=== PATIENT | female | born 1975 | race Caucasian/White ===

== ENCOUNTER 2021-05-14 21:35 | Inpatient (IN) | payer OTHER ==
[~2021-05-14] VITALS: Ht 152.4 cm; Wt 50.1 kg
--- NOTE | 2021-05-14 21:40 | PHYS DOC ---
General Adult HPI: HPI: ".. I think I got DKA.. my sugars are too high to read... " Patient is a 45 year old female who presents with history of elevated glucose levels. Paramedics were unable to get a reading because they were over 500. Unable to establish IV before arrival. Patient has a long history of diabetes. Has had previous episodes of DKA. Has past history of alcohol abuse but has been abstaining for a number of years now. Patient follows with Dr. Pinzon in [place]. Patient denies any recent travel. No specific ill contacts. No history immunosuppression. Review of Systems: Review of Systems: Constitutional: Denies fever or chills Eyes: Denies change in visual acuity HENT: Denies nasal congestion or sore throat Respiratory: Denies cough or shortness of breath Cardiovascular: Denies chest pain or edema GI: Complaints of abdominal pain, nausea, vomiting,. Denies bloody stools or diarrhea : Denies dysuria Musculoskeletal: Denies back pain or joint pain Integument: Denies rash Neurologic: Denies headache, focal weakness or sensory changes Endocrine: Denies polyuria or polydipsia Lymphatic: Denies swollen glands Psychiatric: Denies depression or anxiety Family History: Family History: Noncontributory to presentation Current Medications: Current Meds: See nursing for home meds Allergies: Allergies: No known drug allergies Physical Exam: PE: Constitutional: Moderate acute distress, non-toxic appearance. [] HENT: Normocephalic, atraumatic, bilateral external ears normal, oropharynx dry, no oral exudates, nose normal. [] Eyes: PERRLA, EOMI, conjunctiva normal, no discharge. [] Neck: Normal range of motion, no tenderness, supple, no stridor. [] Cardiovascular: Tachycardia heart rate regular rhythm, no murmur [] Lungs & Thorax: Bilateral breath sounds to apex on auscultation [] Abdomen: Bowel sounds normal, soft, mild right upper quadrant and epigastric tenderness, no masses, no pulsatile masses. Rebound to right upper quadrant and epigastric Skin: Warm, dry, no erythema, no rash. Poor turgor Back: No tenderness, no CVA tenderness. [] Extremities: No tenderness, no cyanosis, no clubbing, ROM intact, no edema. [] Neurologic: Alert and oriented X 3, moves extremities on request. Has distal sensory,, no focal deficits noted. [] Psychologic: Affect anxious judgement normal, mood normal. [] EKG: EKG: My interpretation EKG shows a supraventricular tachycardia 131 bpm. Mild RVH. No findings of acute STEMI. Abnormal EKG [] Radiology/Procedures: Radiology/Procedures: [] Heart Score: C/O Chest Pain: N/A Risk Factors: Risk Factors: DM, Current or recent (<one month) smoker, HTN, HLP, family history of CAD, obesity. Risk Scores: Score 0 - 3: 2.5% MACE over next 6 weeks - Discharge Home Score 4 - 6: 20.3% MACE over next 6 weeks - Admit for Clinical Observation Score 7 - 10: 72.7% MACE over next 6 weeks - Early Invasive Strategies Course & Med Decision Making: Course & Med Decision Making Pertinent Labs and Imaging studies reviewed. (See chart for details) Discussed presentation, testing and treatment plan with . Critical Care 60 min. Impression: 1. DKA- ph 7.030 2. Glucose 542 3. Leukocytosis 18.2 4. Hyponatremia- 129(suspect in part from elevated glucose) 5. Elevated BUN/ Crea 24/1.6 6. Elevated BNP 4,626 7. Macrocytic 107 [] Dragon Disclaimer: Dragon Disclaimer: This electronic medical record was generated, in whole or in part, using a voice recognition dictation system. Departure Departure: Referrals: CALOS COLEMAN MD (PCP) Danny Disclaimer This chart was dictated in whole or in part using Voice Recognition software in a busy, high-work load, and often noisy Emergency Department environment. It may contain unintended and wholly unrecognized errors or omissions. KAT LEVIN MD May 14, 2021 21:40
[2021-05-14] MEDS ORDERED: IV NORMAL SALINE 1,000ML 1,000 ML IV SCH (21:45)
[2021-05-14 22:14] LABS: BASO # 0.2 x10^3/uL (0.0-0.2); BASO % 1 % (0-3); EOS % 0 % (0-3); HEMATOCRIT 45.2 % (36.0-47.0); HEMOGLOBIN 14.4 g/dL (12.0-15.5); LYMPH # 0.7 x10^3/uL (1.0-4.8); LYMPH % 4 % (24-48); MEAN CORPUSCULAR HEMOGLOBIN 34 pg (25-35); MEAN CORPUSCULAR HGB CONC 32 g/dL (31-37); MEAN CORPUSCULAR VOLUME 107 fL (79-100); MONO % 6 % (0-9); NEUT # 16.3 x10^3uL (1.8-7.7); NEUT % 89 % (31-73); PLATELET COUNT 358 x10^3/uL (140-400); RED BLOOD COUNT 4.22 x10^6/uL (3.50-5.40); RED CELL DISTRIBUTION WIDTH 14.2 % (11.5-14.5); WHITE BLOOD COUNT 18.2 x10^3/uL (4.0-11.0)
--- NOTE | 2021-05-14 22:15 | RAD ---
XR CHEST 1V 05/14/2021 9:52 PM INDICATION: Tachycardia COMPARISON: None available TECHNIQUE: Portable frontal view of the chest is provided. FINDINGS: The cardiomediastinal silhouette is within normal limits. Lungs are clear. There are no significant pleural effusions. There is no pulmonary vascular congestion. No pneumothora x. Bilateral humeral hardware is noted. IMPRESSION: There is no acute cardiopulmonary process. Electronically signed by: aSmira Sanders MD (05/14/2021 10:12 PM) ANA
[2021-05-14] MEDS ORDERED: IV NORMAL SALINE 100ML 100 ML ONE (22:17)
[2021-05-14 22:18] LABS: % LYMPHS 7 % (24-48); % MONOS 3 % (0-10); % SEGS 90 % (35-66); ANISOCYTOSIS SLIGHT; PLT ESTIMATE ADEQUATE (ADEQUATE)
[2021-05-14] MEDS ORDERED: ACETAMINOPHEN 325 MG TABLET PO PRN (22:30)
[2021-05-14] MEDS ORDERED: INSULIN REGULAR VIAL 100 UNIT in IV NORMAL SALINE 100ML 100 ML IV ONE (22:30)
[2021-05-14] MEDS ORDERED: INSULIN REGULAR 100 UNIT/ML 3ML VIAL. IV ONE (22:30)
[2021-05-14] MEDS ORDERED: IV RINGERS SOLUTION,LACTATED 1,000 ML IV SCH (22:30)
[2021-05-14] MEDS ORDERED: ONDANSETRON PF 4 MG/2 ML VIAL. IVP PRN (22:30)
[2021-05-14 22:43] LABS: ALBUMIN 4.5 g/dL (3.4-5.0); ALK PHOS 184 U/L (46-116); ALT (SGPT) 52 U/L (14-59); AST (SGOT) 57 U/L (15-37); BLOOD UREA NITROGEN 24 mg/dL (7-20); CALCIUM 8.3 mg/dL (8.5-10.1); CHLORIDE 88 mmol/L (98-107); CREATININE 1.6 mg/dL (0.6-1.0); DIRECT BILIRUBIN 0.1 mg/dL (0.0-0.2); LIPASE 248 U/L (73-393); MAGNESIUM 2.5 mg/dL (1.8-2.4); SODIUM 129 mmol/L (136-145); TOTAL PROTEIN 8.6 g/dL (6.4-8.2)
[2021-05-14] MEDS ORDERED: IV NORMAL SALINE 50ML 50 ML ONE (22:43)
[2021-05-14] MEDS ORDERED: cefTRIAXone SODIUM 1 GM VIAL ONE (22:43)
[2021-05-14] MEDS ORDERED: ONDANSETRON PF 4 MG/2 ML VIAL. IVP ONE (23:00)
[2021-05-14 23:16] LABS: GLUCOSE 540 mg/dL (70-99)
[2021-05-14 23:17] LABS: POTASSIUM 7.3 mmol/L (3.5-5.1)
[2021-05-14 23:18] LABS: ANION GAP 36 (6-14); CARBON DIOXIDE < 5 mmol/L (21-32)
[2021-05-14] MEDS ORDERED: SODIUM BICARB ADULT 8.4% 50 MEQ/50 ML DISP.SYRIN. ONE (23:25)
[2021-05-14] MEDS ORDERED: FUROSEMIDE 40 MG/4 ML VIAL ONE (23:25)
[2021-05-14 23:30] VITALS: BP 154/114
--- NOTE | 2021-05-14 23:30 | NUR ---
Pt admitted to ICU bed 1 from ER via [facility] accompanied by EMS and nursing staff. Pt self transferred from [facility] to toilet/bathroom then to bed independently, steady gait noted. Pt here for c/o high blood glucose and N/V, found to be in DKA. Pt health history and home medications reviewed with pt. Pt recently removed her Dexcom glucose device and insulin pump r/t hypoglycemic episodes but was also recently started on Prednisone for skin irritation from bug bites. Pt with hx of heavy Etoh use but has been sober for 2 years now. Pt lives at home with father. SCDs for VTE. Pt has NOT had any Covid vaccine. Dietary consulted for DKA. Pt is a smoker, RT consulted fro smoking cessation. POC reviewed with pt, understanding verbalized. Pt was given written information regarding hospital policies, unit procedures and contact persons. Valuables were checked and left at bedside per pt request. Dr Cormier called for orders. Pt started on DKA order set and Insulin gtt per GlucoStabilizer. Next BMP check at 0200.
[2021-05-14] MEDS ORDERED: SODIUM BICARB ADULT 8.4% 50 MEQ/50 ML DISP.SYRIN. IV ONE (23:45)
[2021-05-15] VITALS (25 sets, daily range): BP systolic 94–142; BP diastolic 67–107
[2021-05-15] MEDS ORDERED: INSULIN REGULAR VIAL 100 UNIT in IV NORMAL SALINE 100ML 100 ML IV PRN
[2021-05-15] MEDS ORDERED: PROCHLORPERAZINE 10 MG/2 ML VIAL. IV PRN (00:15)
[2021-05-15] MEDS ORDERED: FUROSEMIDE 40 MG/4 ML VIAL IVP ONE ×2 (00:15→09:00)
[2021-05-15] MEDS: IV NORMAL SALINE 1,000ML 1,000 ML IV SCH ×2 (00:18→02:54)
[2021-05-15 01:00] LABS: CLARITY,URINE CLEAR; COLOR,URINE YELLOW; GLUCOSE,URINE 250 mg/dL (NEG)
[2021-05-15 01:01] LABS: BILIRUBIN,URINE SMALL (NEG); NITRITE,URINE NEG (NEG); UROBILINOGEN,URINE 0.2 mg/dL (0.2 mg/dL)
[2021-05-15 01:03] LABS: BACTERIA,URINE 0 /HPF (0-FEW); SQUAMOUS EPITHELIAL CELL,UR OCC /LPF; WBC,URINE 0 /HPF (0-4)
--- NOTE | 2021-05-15 01:14 | EKG ---
[address] [address] Test Date: 2021-05-14 Test Time: 21:51:34 Pat Name: BRI CHATMAN Department: Room: Gender: F Baker Paint: : [id number] Requested By: KAT LEVIN Order Number: [id number] Reading MD: Measurements Intervals Floral Rate: 131 P: 246 AL: 86 QRS: 67 QRSD: 96 T: 37 QT: 294 QTc: 439 Interpretive Statements SUPRAVENTRICULAR TACHYCARDIA RVH WITH REPOLARIZATION ABNORMALITY ABNORMAL ECG RI6.02 No previous ECG available for comparison
[2021-05-15] MEDS: IV DEXTROSE 5 %-0.45 % NACL 1,000 ML IV SCH ×4 (01:20→20:55)
[2021-05-15] MEDS ORDERED: GABA-586 PO (02:15)
[2021-05-15] MEDS ORDERED: TRIA15CR2 TP (02:15)
[2021-05-15] MEDS ORDERED: LEVO75TA5 PO (02:15)
[2021-05-15] MEDS ORDERED: TOPI25TA7 PO (02:15)
[2021-05-15] MEDS ORDERED: LISI20TA18 PO (02:15)
[2021-05-15] MEDS ORDERED: INSU100C SQ (02:15)
[2021-05-15] MEDS ORDERED: MUPI1OIN6 TP (02:15)
[2021-05-15] MEDS ORDERED: BENZ-8 PO (03:06)
[2021-05-15 03:11] LABS: CALCIUM 7.8 mg/dL (8.5-10.1); CREATININE 1.3 mg/dL (0.6-1.0); GFR 44.5; POTASSIUM 5.3 mmol/L (3.5-5.1)
--- NOTE | 2021-05-15 05:00 | NUR ---
The troponin level drawn at 0220 that was reported by lab to be elevated at 0.170 was entered incorrectly and is now corrected in computer. Troponin level was actually 0.017 on draw.
[2021-05-15 07:17] LABS: BASO % 0 % (0-3); EOS % 0 % (0-3); HEMATOCRIT 38.5 % (36.0-47.0); LYMPH # 0.9 x10^3/uL (1.0-4.8); LYMPH % 6 % (24-48); MEAN CORPUSCULAR HEMOGLOBIN 34 pg (25-35); MEAN CORPUSCULAR HGB CONC 34 g/dL (31-37); MEAN CORPUSCULAR VOLUME 100 fL (79-100); MONO # 0.8 x10^3/uL (0.0-1.1); MONO % 6 % (0-9); NEUT # 12.2 x10^3uL (1.8-7.7); NEUT % 87 % (31-73); PLATELET COUNT 219 x10^3/uL (140-400); RED BLOOD COUNT 3.85 x10^6/uL (3.50-5.40); RED CELL DISTRIBUTION WIDTH 13.4 % (11.5-14.5)
[2021-05-15 07:32] LABS: CALCIUM 8.1 mg/dL (8.5-10.1); CREATININE 1.3 mg/dL (0.6-1.0); GFR 44.5; POTASSIUM 3.8 mmol/L (3.5-5.1)
[2021-05-15] MEDS: IPRATRPIUM/ALBUTEROL 0.5/2.5MG 3 ML NEBU. NEB SCH ×2 (08:00→12:00)
--- NOTE | 2021-05-15 08:13 | PDOC2 ---
CARDIAC CONSULT DATE OF CONSULT DOS: DATE: 05/15/21 TIME: 08:11 REASON FOR CONSULT Reason for Consult elevated trop REFERRING PHYSICIAN Referring Physician Dr. Cormier SOURCE Source: Chart review, Patient HPI History of Present Illness This is a 45 yo female who presented secondary to nausea/vomiting, shortness of breath, and suspected DKA. Troponin level obtained and was noted to be elevated, which prompted this consult. Patient reports having cough, cold/congestion over the last several days. Is type I diabetes and normally wears continuous glucose monitor. She did not place recently as she was "cick". Was placed on steroids recently due to multiple bug bites. Has not checked her sugars in the last 5 days. Developed nausea/vomiting. Thought she was probably in DKA as symptoms were similar to previous episode of DKA. Has a history of heavy alcoholism; has been sober for 2 years. She denies any chest pain, palpitations, dizziness, or diaphoresis. SOA has resolved. Consult obtained due to trop on 0.029, which is still WNL. PAST MEDICAL HISTORY Cardiovascular: HTN Pulmonary: Pneumonia Renal/: Chronic renal insuff Endocrine: Diabetes, Hypothyroidism PAST SURGICAL HISTORY Past Surgical History: Total hip replacement (bilateral ), Other (right thoracotomy, bilateral shoulder replacement ) FAMILY HISTORY Family History: Hypertension SOCIAL HISTORY Smoke: <1 pack per day ALCOHOL: other (h/o heavy use. Sober 2 years ) Drugs: None Lives: with Family CURRENT MEDICATIONS Current Medications Current Medications Sodium Chloride 1,000 ml @ 1,000 mls/hr Q1H IV Last administered on 05/14/21at 22:00; Start 05/14/21 at 21:45; Stop 05/14/21 at 22:44; Status DC Insulin Human Regular (HumuLIN R VIAL) 10 unit 1X ONCE IV Last administered on 05/14/21at 22:21; Start 05/14/21 at 22:30; Stop 05/14/21 at 22:31; Status DC Insulin Human Regular 100 unit/ Sodium Chloride 101 ml @ 0 mls/hr 1X ONCE IV Last administered on 05/14/21at 22:23; Start 05/14/21 at 22:30; Stop 05/14/21 at 22:31; Status DC Sodium Chloride 100 ml @ As Directed STK-MED ONCE .ROUTE ; Start 05/14/21 at 22:17; Stop 05/14/21 at 22:17; Status DC Ceftriaxone Sodium 1 gm/ Sodium Chloride 50 ml @ 100 mls/hr 1X ONCE IV Last administered on 05/14/21at 22:46; Start 05/14/21 at 23:00; Stop 05/14/21 at 23:29; Status DC Ondansetron HCl (Zofran) 4 mg PRN Q4HRS PRN IVP NAUSEA/VOMITING; Start 05/14/21 at 22:30; Stop 05/15/21 at 07:30; Status DC Acetaminophen (Tylenol) 650 mg PRN Q4HRS PRN PO FEVER > 100.3'F; Start 05/14/21 at 22:30; Stop 05/15/21 at 22:29 Albuterol/ Ipratropium (Duoneb) 3 ml RTQID NEB ; Start 05/15/21 at 08:00; Stop 05/16/21 at 07:59 Lactated Ringer's 1,000 ml @ 200 mls/hr Q5H IV ; Start 05/14/21 at 22:30; Stop 05/15/21 at 00:12; Status DC Insulin Human Regular 100 unit/ Sodium Chloride 101 ml @ 0 mls/hr 1X ONCE IV ; Start 05/14/21 at 22:30; Stop 05/14/21 at 22:31; Status DC Ceftriaxone Sodium 1 gm/ Sodium Chloride 50 ml @ 100 mls/hr QHS IV ; Start 05/15/21 at 21:00 Ondansetron HCl (Zofran) 8 mg 1X ONCE IVP Last administered on 05/14/21at 22:46; Start 05/14/21 at 23:00; Stop 05/14/21 at 23:01; Status DC Sodium Chloride 50 ml @ As Directed STK-MED ONCE .ROUTE ; Start 05/14/21 at 22:43; Stop 05/14/21 at 22:43; Status DC Ceftriaxone Sodium (Rocephin) 1 gm STK-MED ONCE .ROUTE ; Start 05/14/21 at 22:43; Stop 05/14/21 at 22:43; Status DC Sodium Bicarbonate (Sodium Bicarb Adult 8.4% Syr) 50 meq 1X ONCE IV Last administered on 05/14/21at 23:27; Start 05/14/21 at 23:45; Stop 05/14/21 at 23:46; Status DC Furosemide (Lasix) 20 mg BID92 IVP ; Start 05/15/21 at 09:00 Furosemide (Lasix) 40 mg DAILY IVP Last administered on 05/14/21at 23:27; Start 05/15/21 at 09:00; Stop 05/15/21 at 00:07; Status DC Furosemide (Lasix) 40 mg STK-MED ONCE .ROUTE ; Start 05/14/21 at 23:25; Stop 05/14/21 at 23:25; Status DC Sodium Bicarbonate (Sodium Bicarb Adult 8.4% Syr) 50 meq STK-MED ONCE .ROUTE ; Start 05/14/21 at 23:25; Stop 05/14/21 at 23:25; Status DC Sodium Chloride 1,000 ml @ 160 mls/hr Q6H15M IV Last administered on 05/15/21at 00:18; Start 05/14/21 at 23:30; Stop 05/15/21 at 23:29 Dextrose/Sodium Chloride 1,000 ml @ 0 mls/hr Q0M IV Last administered on 05/15/21at 06:32; Start 05/15/21 at 00:00 Insulin Human Regular 100 unit/ Sodium Chloride 101 ml @ 0 mls/hr CONT PRN PRN IV PER PROTOCOL Last administered on 05/15/21at 00:20; Start 05/15/21 at 00:00 Furosemide (Lasix) 40 mg 1X ONCE IVP ; Start 05/15/21 at 09:00; Stop 05/15/21 at 09:01; Status Cancel Furosemide (Lasix) 40 mg 1X ONCE IVP ; Start 05/15/21 at 00:15; Stop 05/15/21 at 00:16; Status DC Fentanyl Citrate (Fentanyl 2ml Vial) 50 mcg PRN Q2HR PRN IVP PAIN Last administered on 05/15/21at 00:29; Start 05/15/21 at 00:15 Prochlorperazine Edisylate (Compazine) 10 mg PRN Q6HRS PRN IV NAUSEA/VOMITING Last administered on 05/15/21at 00:29; Start 05/15/21 at 00:15 Lactobacillus Rhamnosus (Culturelle) 1 cap BID PO ; Start 05/15/21 at 09:00 Active Scripts Active Reported Benzonatate 100 Mg Capsule 100 Mg PO PRN TID PRN LAST DOSE GIVEN: DATE: TIME: NEXT DOSE DUE: DATE: TIME: Topiramate 25 Mg Tablet 25 Mg PO DAILY LAST DOSE GIVEN: DATE: TIME: NEXT DOSE DUE: DATE: TIME: Humalog (Insulin Lispro) 100 Unit/1 Ml Cartridge 100 Unit SQ CONT PRN PRN Uses cartridge in Insulin Pump LAST DOSE GIVEN: DATE: TIME: NEXT DOSE DUE: DATE: TIME: Lisinopril 20 Mg Tablet 20 Mg PO DAILY LAST DOSE GIVEN: DATE: TIME: NEXT DOSE DUE: DATE: TIME: Levothyroxine Sodium 75 Mcg Tablet 75 Mcg PO DAILYAC LAST DOSE GIVEN: DATE: TIME: NEXT DOSE DUE: DATE: TIME: Triamcinolone Acetonide 0.025% Cream (Triamcinolone Acetonide) 15 Gm Cream..g. 1 Linda TP PRN BID PRN LAST DOSE GIVEN: DATE: TIME: NEXT DOSE DUE: DATE: TIME: Mupirocin 1 Gm Oin.pf.linda 1 Linda TP PRN BID PRN LAST DOSE GIVEN: DATE: TIME: NEXT DOSE DUE: DATE: TIME: Gabapentin (Gabapentin) 300 Mg Capsule 300 Mg PO DAILY LAST DOSE GIVEN: DATE: TIME: NEXT DOSE DUE: DATE: TIME: ALLERGIES Allergies: Coded Allergies: No Known Drug Allergies (Unverified , 05/14/21) ROS Review of Systems 14 point ROS conducted with pertinent positives noted above in HPI PHYSICAL EXAM General: Alert, Oriented X3, Cooperative, No acute distress HEENT: Atraumatic Lungs: Clear to auscultation Heart: Regular rate (SR/ST ) Abdomen: Soft Extremities: No edema Skin: No breakdown Neuro: Normal speech, Sensation intact Psych/Mental Status: Mental status NL, Mood NL MUSCULOSKELETAL: No deformity VITALS Vital Signs Vital Signs Date Time Temp Pulse Resp B/P (MAP) Pulse Ox O2 Delivery O2 Flow Rate FiO2 05/15/21 07:48 109 16 117/78 (91) 97 Room Air 05/15/21 05:40 99.5 LABS LABS Laboratory Tests Test 05/14/21 21:56 05/14/21 22:03 05/14/21 22:10 05/14/21 23:20 White Blood Count 18.2 x10^3/uL (4.0-11.0) Red Blood Count 4.22 x10^6/uL (3.50-5.40) Hemoglobin 14.4 g/dL (12.0-15.5) Hematocrit 45.2 % (36.0-47.0) Mean Corpuscular Volume 107 fL (79-100) Mean Corpuscular Hemoglobin 34 pg (25-35) Mean Corpuscular Hemoglobin Concent 32 g/dL (31-37) Red Cell Distribution Width 14.2 % (11.5-14.5) Platelet Count 358 x10^3/uL (140-400) Neutrophils (%) (Auto) 89 % (31-73) Lymphocytes (%) (Auto) 4 % (24-48) Monocytes (%) (Auto) 6 % (0-9) Eosinophils (%) (Auto) 0 % (0-3) Basophils (%) (Auto) 1 % (0-3) Neutrophils # (Auto) 16.3 x10^3uL (1.8-7.7) Lymphocytes # (Auto) 0.7 x10^3/uL (1.0-4.8) Monocytes # (Auto) 1.0 x10^3/uL (0.0-1.1) Eosinophils # (Auto) 0.0 x10^3/uL (0.0-0.7) Basophils # (Auto) 0.2 x10^3/uL (0.0-0.2) Segmented Neutrophils % 90 % (35-66) Lymphocytes % 7 % (24-48) Monocytes % 3 % (0-10) Platelet Estimate Adequate (ADEQUATE) Anisocytosis Slight Macrocytosis Slight Sodium Level 129 mmol/L (136-145) Potassium Level 7.3 mmol/L (3.5-5.1) Chloride Level 88 mmol/L (98-107) Carbon Dioxide Level < 5 mmol/L (21-32) Anion Gap 36 (6-14) Blood Urea Nitrogen 24 mg/dL (7-20) Creatinine 1.6 mg/dL (0.6-1.0) Estimated GFR (Cockcroft-Gault) 35.0 Glucose Level 540 mg/dL (70-99) Calcium Level 8.3 mg/dL (8.5-10.1) Magnesium Level 2.5 mg/dL (1.8-2.4) Total Bilirubin 1.0 mg/dL (0.2-1.0) Direct Bilirubin 0.1 mg/dL (0.0-0.2) Aspartate Amino Transf (AST/SGOT) 57 U/L (15-37) Alanine Aminotransferase (ALT/SGPT) 52 U/L (14-59) Alkaline Phosphatase 184 U/L (46-116) Creatine Kinase 128 U/L (26-192) Troponin I Quantitative < 0.017 ng/mL (0-0.055) GN-Tzt-O-Type Natriuretic Peptide 4626 pg/mL (0-124) Total Protein 8.6 g/dL (6.4-8.2) Albumin 4.5 g/dL (3.4-5.0) Lipase 248 U/L (73-393) Bedside Venous pH 7.03 (7.32-7.42) Bedside Venous pCO2 15 mmHg (41-51) Bedside Venous pO2 49 mmHg (20-40) Venous Blood HCO3 4 mmol/L (24-28) POC Venous O2 Saturation (Robert) 66 % Bedside FiO2 21 Glucose (Fingerstick) 542 mg/dL (70-99) 349 mg/dL (70-99) Test 05/14/21 23:48 05/15/21 00:01 05/15/21 01:17 05/15/21 02:20 Glucose (Fingerstick) 282 mg/dL (70-99) 230 mg/dL (70-99) 252 mg/dL (70-99) Urine Collection Type Unknown Urine Color Yellow Urine Clarity Clear Urine pH 5.5 Urine Specific Thomson 1.025 Urine Protein 100 mg/dl (NEG-TRACE) Urine Glucose (UA) 250 mg/dL (NEG) Urine Ketones (Stick) >=160 mg/dL (NEG) Urine Blood Mod (NEG) Urine Nitrite Neg (NEG) Urine Bilirubin Small (NEG) Urine Urobilinogen Dipstick 0.2 mg/dL (0.2 mg/dL) Urine Leukocyte Esterase Neg (NEG) Urine RBC 3-5 /HPF (0-2) Urine WBC 0 /HPF (0-4) Urine Squamous Epithelial Cells Occ /LPF Urine Bacteria 0 /HPF (0-FEW) Urine Mucus Mod /LPF Sodium Level 134 mmol/L (136-145) Potassium Level 5.3 mmol/L (3.5-5.1) Chloride Level 95 mmol/L (98-107) Carbon Dioxide Level 11 mmol/L (21-32) Anion Gap 28 (6-14) Blood Urea Nitrogen 23 mg/dL (7-20) Creatinine 1.3 mg/dL (0.6-1.0) Estimated GFR (Cockcroft-Gault) 44.5 Glucose Level 238 mg/dL (70-99) Calcium Level 7.8 mg/dL (8.5-10.1) Troponin I Quantitative < 0.017 ng/mL (0-0.055) Test 05/15/21 03:23 05/15/21 04:26 05/15/21 05:29 05/15/21 06:15 Glucose (Fingerstick) 231 mg/dL (70-99) 207 mg/dL (70-99) 156 mg/dL (70-99) White Blood Count 14.0 x10^3/uL (4.0-11.0) Red Blood Count 3.85 x10^6/uL (3.50-5.40) Hemoglobin 13.0 g/dL (12.0-15.5) Hematocrit 38.5 % (36.0-47.0) Mean Corpuscular Volume 100 fL (79-100) Mean Corpuscular Hemoglobin 34 pg (25-35) Mean Corpuscular Hemoglobin Concent 34 g/dL (31-37) Red Cell Distribution Width 13.4 % (11.5-14.5) Platelet Count 219 x10^3/uL (140-400) Neutrophils (%) (Auto) 87 % (31-73) Lymphocytes (%) (Auto) 6 % (24-48) Monocytes (%) (Auto) 6 % (0-9) Eosinophils (%) (Auto) 0 % (0-3) Basophils (%) (Auto) 0 % (0-3) Neutrophils # (Auto) 12.2 x10^3uL (1.8-7.7) Lymphocytes # (Auto) 0.9 x10^3/uL (1.0-4.8) Monocytes # (Auto) 0.8 x10^3/uL (0.0-1.1) Eosinophils # (Auto) 0.0 x10^3/uL (0.0-0.7) Basophils # (Auto) 0.0 x10^3/uL (0.0-0.2) Sodium Level 136 mmol/L (136-145) Potassium Level 3.8 mmol/L (3.5-5.1) Chloride Level 99 mmol/L (98-107) Carbon Dioxide Level 17 mmol/L (21-32) Anion Gap 20 (6-14) Blood Urea Nitrogen 19 mg/dL (7-20) Creatinine 1.3 mg/dL (0.6-1.0) Estimated GFR (Cockcroft-Gault) 44.5 Glucose Level 137 mg/dL (70-99) Calcium Level 8.1 mg/dL (8.5-10.1) Troponin I Quantitative 0.029 ng/mL (0-0.055) Test 05/15/21 06:29 05/15/21 07:30 Glucose (Fingerstick) 153 mg/dL (70-99) 139 mg/dL (70-99) ASSESSMENT/PLAN Assessment/Plan 1. Nausea/vomiting, DKA 2. Diabetes, II 3. PAKO, hyperkalemia 4. Mild troponin elevation; highest 0.029, although remains WNL. Demand mediated in setting of above 5. Sinus tachycardia; reactive to above 6. Hypertension; controlled 7. Hypothyroidism 8. Tobaccoism; discussed/encourage cessation Recommendations Supportive care from a CV standpoint Ongoing treatment of DKA as per IM No further cardiac workup warranted at this time Thank you for this consultation MARIBELL JOINER APRN May 15, 2021 08:12
[2021-05-15] MEDS ORDERED: POTASSIUM CL 20MEQ D5-0.45NACL 1,000 ML IV SCH (08:30)
[2021-05-15] MEDS ORDERED: POTASSIUM CL 20MEQ IN D5W 1,000 ML IV SCH (08:45)
[2021-05-15] MEDS: LACTOBACILLUS RHAMNOSUS GG 1 CAPSULE. PO SCH ×2 (08:48→20:55)
[2021-05-15] MEDS: FUROSEMIDE 20 MG/2 ML VIAL IVP SCH ×2 (08:49→15:26)
[2021-05-15] MEDS ORDERED: FUROSEMIDE 40 MG/4 ML VIAL IVP SCH (09:00)
--- NOTE | 2021-05-15 10:33 | NUR ---
Patient is alert and oriented x3. Having complaints about IVs. LEJ burning when pushing meds through, is some puffiness around site although doesn't balloon up when flushing. New IV placed in right hand. Switched patients fluids to D5 with potassium. Pt complaining of burning, reduced rate and patient still unable to tolerate. Threatening to rip her IV out. Checking BMP, pt switched to D5 1/2 NS. Will view lab values and notify doctor. WCTM.
[2021-05-15 11:22] LABS: CALCIUM 8.5 mg/dL (8.5-10.1); CREATININE 1.2 mg/dL (0.6-1.0); GFR 48.8; POTASSIUM 3.6 mmol/L (3.5-5.1)
[2021-05-15] MEDS ORDERED: POTASSIUM CHLORIDE 20 MEQ TABLET.ER. PO ONE (12:15)
--- NOTE | 2021-05-15 12:16 | NUR ---
IVF switched back to D5 1/2 NS due to patient unable to tolerate potassium through IV. Giving potassium orally.
[2021-05-15 14:30] LABS: CALCIUM 8.2 mg/dL (8.5-10.1); CREATININE 1.2 mg/dL (0.6-1.0); GFR 48.8; POTASSIUM 3.1 mmol/L (3.5-5.1)
[2021-05-15] MEDS ORDERED: DEXTROSE 50% 25 GM / 50ML DISP.SYRIN. IV PRN (15:30)
[2021-05-15] MEDS ORDERED: MUPIROCIN 2% TOPICAL OINTMENT 22GM TUBE. TP PRN (16:30)
[2021-05-15] MEDS ORDERED: TRIAMCINOLONE ACETONIDE 0.1% TOPICAL CREAM 15GM TUBE. TP PRN (16:30)
[2021-05-15] MEDS: GABAPENTIN 300 MG CAPSULE. PO SCH (16:49)
[2021-05-15] MEDS: TOPIRAMATE 25 MG TABLET. PO SCH (16:50)
[2021-05-15] MEDS: INSULIN LISPRO 300 UNITS/3 ML VIAL. SQ SCH (17:32)
--- NOTE | 2021-05-15 18:32 | HP ---
ADMIT DATE: 05/15/2021 HISTORY OF PRESENT ILLNESS: The patient is a 45-year-old female patient who presented to the Emergency Room of [facility] with markedly elevated glucose level. Paramedics were unable to get the read as the machine reads over 500 and unable to establish an IV before arrival. The patient has a long history of diabetes since 2014, has had multiple episodes of DKA. She also has a long history of alcohol abuse, has been abstaining from drinking alcohol for the last 2 years. She follows with Dr. Pinzon at [place]. Denied any recent travel. No specific ill contact. No history of immunosuppression. She was evaluated. She also complained that she was on some steroids for pruritic skin rash and also had chest congestion. She was evaluated in the Emergency Room and her lab work showed a white cell count of 18,200. Her blood gases showed a pH of 7.03, a pCO2 of 15, pO2 of 49, bicarbonate of 4, and her initial chemistry showed her blood sugar of 540. Sodium 129, potassium 7.3, chloride 88, bicarbonate less than 5, anion gap of 36, BUN 24, creatinine 1.6. Estimated GFR was 35 mL per minute. Her calcium was 8.3, magnesium was 2.5. She was basically admitted with diabetic ketoacidosis. Her chest x-ray was basically unremarkable, and her urinalysis was also unremarkable. She was admitted to the ICU, started on IV fluid and insulin drip as per DKA protocol. 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 Has had pneumonia in 2013 that required a right-sided chest tube placement, hypothyroidism, alcoholism and alcohol-induced pancreatitis. PAST SURGICAL HISTORY: Significant for bilateral hip and bilateral shoulder replacement for avascular necrosis. She also has her right sternocleidomastoid muscle removed during her childhood. ALLERGIES: She has no known drug allergies. MEDICATIONS: She is currently on the following medications: She is on lisinopril 20 mg once a day, gabapentin 300 mg once a day, topiramate 25 mg daily, benzonatate 100 mg 3 times a day. She is on Humalog insulin as the insulin sliding scale before meals. She is on levothyroxine 75 mcg once a day, Bactroban ointment apply topically twice a day and she is on triamcinolone acetonide 0.025% cream apply topically twice a day. FAMILY HISTORY: She is the only child, has no brothers and sisters. Her parents are since she was 6 years old. Her father is alive at the age of 70 and he has cancer. Mother is alive at the age of 65 and apparently healthy. SOCIAL HISTORY: She is single, has no children. She smokes 6-8 cigarettes a day, does not drink alcohol, has been sober for the last 2 years. She does not use any drugs. 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 REVIEW OF SYSTEMS: As per history of present illness. PHYSICAL EXAMINATION: GENERAL: On arrival to the Emergency Room, she was tachypneic, tachycardic. VITAL SIGNS: Her heart rate was 137. Her blood pressure is 140/100, temperature was 97.8, respiratory rate was 50 and oxygen saturation was 98% on room air. HEAD, EYES, EARS, NOSE, AND THROAT: Normocephalic, atraumatic. NECK: Supple. HEART: Showed normal first and second heart sounds. No gallop, rub or murmur. CHEST: Clear to auscultation, no crepitation or rhonchi. ABDOMEN: Distended, soft, nontender. NEUROLOGIC: She is awake, alert, responding appropriately. Cranial nerves intact. She moves extremities without difficulty. LABORATORY DATA: Her lab work on arrival showed a white cell count of 18,200, hemoglobin 14.4, hematocrit 45, MCV 107, and a platelet count of 358,000 with a manual differential showed 89% polymorphs, 4% lymphocytes and 6% . Her chemistry showed a serum sodium 129, potassium 7.3, chloride 88, bicarbonate 5, anion gap of 36, BUN is 24, creatinine 1.6. Estimated GFR was 35 mL per minute. Her blood sugar was 540 mg/dL, calcium was 8.3, magnesium 2.5. Total bilirubin, AST, ALT, alkaline phosphatase slightly elevated. CK was 128. Beta-natriuretic peptide was 4626. Total protein 8.6, albumin was 4.5 and lipase was 248. Her urinalysis showed the urine was yellow, clear with a pH of 5.5, specific gravity of 1.025. There is large amount of protein, large amount of glucose, large amount of ketones, moderate amount of blood, negative for nitrite, negative for leukocyte esterase. There are 3-5 rbc's, no wbc's and no bacteria. Her chest x-ray showed the cardiomediastinal silhouette is within normal limits. Lungs are clear. There are no significant pleural effusion. There is no pulmonary vascular congestion, no pneumothorax, bilateral humeral hardware is noted. ASSESSMENT AND PLAN: The patient was started on IV fluid and insulin drip as per insulin sliding scale. We will monitor her labs as per the diabetic ketoacidosis protocol and replenish her potassium once needed, and once her blood sugar and anion gap is closed, we will switch her back to her usual home medications. We will also reconcile all her medications. PILY/RON/CASIMIRO DR: Laurel TID: [id number]
[2021-05-15] MEDS: BENZONATATE 100 MG CAPSULE. PO PRN (20:55)
[2021-05-15] MEDS ORDERED: INSULIN GLARGINE SYRINGE. SQ SCH (21:00)
[2021-05-16] VITALS (8 sets, daily range): BP systolic 96–113; BP diastolic 74–85
--- NOTE | 2021-05-16 02:07 | PN ---
DATE: 05/15/2021 SUBJECTIVE: The patient is resting slightly propped up in bed, in no apparent distress. She is awake, alert and feeling generally much better, although she can still continue to have some congestion and cough that seemed to be moist. PHYSICAL EXAMINATION: GENERAL: When I examined her, she looked well and clearly there is no pallor, jaundice, cyanosis or thyromegaly. No jugular venous distention. No lower limb edema. VITAL SIGNS: Her heart rate was 91, blood pressure is 106/78, temperature was 99.2, respiratory rate was 14 and oxygen saturation was 98% on room air. HEAD, EYES, EARS, NOSE, AND THROAT: Normocephalic, atraumatic. NECK: Supple. HEART: Showed normal first and second heart sounds. No gallop, rub or murmur. CHEST: Clear to auscultation. No crepitation, or rhonchi. ABDOMEN: Distended, soft, nontender. NEUROLOGIC: She was awake, alert, responding appropriately. Cranial nerves intact. She moves extremities without difficulty. She ambulates without assistance or assistive devices. Her intake was 2325, output was 1350. LABORATORY DATA: As of this morning, her white cell count was down to 14,000, hemoglobin 13, hematocrit 38, MCV 100 and platelet count of 219,000. Her chemistry this afternoon showed her serum sodium was 135, potassium 3.1, chloride 100, bicarbonate 22, anion gap of 13, BUN 16, creatinine 1.2. Estimated GFR was 48 mL per minute. Her glucose 165 and calcium was 8.2. ASSESSMENT: Diabetic ketoacidosis, resolved. Her anion gap has closed. Dilutional hyponatremia, resolved. Hyperkalemia, resolved. Acute kidney injury, resolved. Her creatinine came down from 1.6 to 1.2. Other medical problems include hypertension, hypothyroidism, avascular necrosis of both tibias. PLAN: To discontinue the insulin drip at her supper. She was started on insulin sliding scale, was started also on Lantus 20 units at bedtime and we will monitor her tomorrow morning once her blood sugar stabilizes and she has no more symptoms, she can be discharged home. SHAHLA DR: Laurel TID: [id number]
--- NOTE | 2021-05-16 05:10 | NUR ---
Pt awake in bed watching TV at change of shift. Pt A&Ox4, pleasant and cooperative with cares. Pt was taken off Insulin gtt and IVFs on previous shift around 1730, gap closed and carbon dioxide normal now. Blood glucose checks have been 149, 274, 102 & 305 on this shift. Pt denies N/V or pain, tolerating ADA diet without difficulty. Pt slept on and off during night. Pt refused shower stating "I hope to go home today since my sugars are better." Pt up independently to bathroom during night, started menstrual cycle - supplies given. Pt hopeful for DC home later today.
--- NOTE | 2021-05-16 06:15 | NUR ---
Pt degraded to Inpt Tele. [facility]. Pt packed up all her belongings and walked over with nursing staff to [facility]. Report given to on coming day shift nursing.
[2021-05-16 06:59] LABS: HEMATOCRIT 42.6 % (36.0-47.0); HEMOGLOBIN 14.7 g/dL (12.0-15.5); RED BLOOD COUNT 4.26 x10^6/uL (3.50-5.40); RED CELL DISTRIBUTION WIDTH 13.4 % (11.5-14.5); WHITE BLOOD COUNT 5.9 x10^3/uL (4.0-11.0)
[2021-05-16 07:12] LABS: ALBUMIN 3.5 g/dL (3.4-5.0); ALBUMIN/GLOBULIN RATIO 0.9 (1.0-1.7); CALCIUM 9.4 mg/dL (8.5-10.1); CREATININE 0.9 mg/dL (0.6-1.0); POTASSIUM 3.6 mmol/L (3.5-5.1); TOTAL BILIRUBIN 0.4 mg/dL (0.2-1.0); TOTAL PROTEIN 7.3 g/dL (6.4-8.2)
[2021-05-16] MEDS ORDERED: LEVOTHYROXINE 75 MCG TABLET PO SCH (07:30)
[2021-05-16] MEDS: INSULIN LISPRO 300 UNITS/3 ML VIAL. SQ SCH ×2 (08:00→12:41)
[2021-05-16] MEDS: IV DEXTROSE 5 %-0.45 % NACL 1,000 ML IV SCH (08:15)
[2021-05-16] MEDS: BENZONATATE 100 MG CAPSULE. PO PRN (08:24)
[2021-05-16] MEDS: TOPIRAMATE 25 MG TABLET. PO SCH (08:25)
[2021-05-16] MEDS: LACTOBACILLUS RHAMNOSUS GG 1 CAPSULE. PO SCH (08:25)
[2021-05-16] MEDS: GABAPENTIN 300 MG CAPSULE. PO SCH (08:25)
[2021-05-16] MEDS ORDERED: LISINOPRIL 20 MG TABLET PO SCH (09:00)
--- NOTE | 2021-05-16 18:02 | NUR ---
Discharge Note Patient read all discharge instructions and questions answered in full. Invasive lines x2 removed without difficulty and complications. Patient denies any further needs. Patient ambulated out of hospital per self.
--- NOTE | 2021-05-16 21:17 | DS ---
DATE OF DISCHARGE: 05/16/2021 HOSPITAL COURSE: The patient is a 45-year-old female patient who was admitted with poorly controlled blood sugar. She was diagnosed with DKA and admitted to the ICU, started on insulin drip and IV fluid as per diabetic ketoacidosis protocol. On admission, she was also found to be dilutional hyponatremia, hyperkalemia and acute kidney injury that has resolved. When I saw her today, she was resting slightly propped up in bed, in no apparent distress. On questioning her, denied any complaint. Nursing staff did not voice any concerns, stated that she has generally uneventful night. PHYSICAL EXAMINATION: GENERAL: When I examined her, she was pale, but no jaundice, cyanosis or thyromegaly. No jugular venous distention. No limb edema. VITAL SIGNS: Her heart rate was 95, blood pressure is 113/89, temperature was 97.7, respiratory rate was 18 and oxygen saturation was 97%. The rest of clinical exam is unremarkable. LABORATORY DATA: This morning showed a white cell count of 5900, hemoglobin 14.7, hematocrit 42, MCV 100 and platelet count of 172,000. Her chemistry showed a serum sodium 136, potassium 3.6, chloride 100, bicarbonate 21, anion gap of 15, BUN 15, creatinine 0.9. Estimated GFR was 68 mL per minute. Her glucose 193, calcium was 9.4. Total bilirubin, ALT, alkaline phosphatase slightly elevated. Total protein 7.3, albumin was 3.5. DISCHARGE MEDICATIONS: The patient was discharged home to continue on benzonatate 100 mg twice a day, gabapentin 300 mg daily, Humalog insulin as per her insulin infusion pump, levothyroxine 75 mcg once a day, lisinopril 20 mg once a day, topiramate 25 mg once a day, triamcinolone acetonide 15 grams cream apply topically twice a day. I called in a Unomy transmitter as well as Humalog insulin, the cough suppressant. FINAL DISCHARGE DIAGNOSES: 1. Diabetic ketoacidosis. 2. Dilutional hyponatremia, resolved. 3. Hyperkalemia, resolved; acute kidney injury, resolved. Other medical problems include diabetic peripheral neuropathy, hypothyroidism and hypertension. ROBSON DR: Laurel TID: [id number]
== END 2021-05-16 14:30 | disposition home or self-care (01) | DRG 637 ==
LOC: ER 21:35 → ICU 22:25 → 1 SOUTH 05-16 06:25
PROVIDERS: ADMIT Internal Medicine; ATTEND Internal Medicine
DX: E10.10 Type 1 diabetes mellitus with ketoacidosis without coma (principal); N17.0 Acute kidney failure with tubular necrosis; E87.1 Hypo-osmolality and hyponatremia; M87.9 Osteonecrosis, unspecified; D72.829 Elevated white blood cell count, unspecified; E03.9 Hypothyroidism, unspecified; E10.22 Type 1 diabetes mellitus with diabetic chronic kidney disease; E10.42 Type 1 diabetes mellitus with diabetic polyneuropathy; E87.5 Hyperkalemia; F17.210 Nicotine dependence, cigarettes, uncomplicated; I12.9 Hypertensive chronic kidney disease with stage 1 through stage 4 chronic kidney disease, or unspecified chronic kidney disease; L29.9 Pruritus, unspecified; N18.9 Chronic kidney disease, unspecified; W57.XXXA Bitten or stung by nonvenomous insect and other nonvenomous arthropods, initial encounter; Z79.4 Long term (current) use of insulin; Z82.49 Family history of ischemic heart disease and other diseases of the circulatory system; Z96.611 Presence of right artificial shoulder joint; Z96.612 Presence of left artificial shoulder joint; Z96.643 Presence of artificial hip joint, bilateral; F10.20 Alcohol dependence, uncomplicated
CPT/HCPCS: 36415; 71045; 80048; 80053; 80076; 81001; 82550; 82803; 82947; 83690; 83735; 83880; 84443; 84484; 85007; 85025; 85027; 93005; 96365; 96368; 96375; 99406; G0238; J0696; J0780; J1815; J1940; J2405; J3010; J7042; 99285-25; J7030

== ENCOUNTER → 2021-12-10 | Outpatient (CLI) | payer OTHER ==
[2021-05-16 10:43] VITALS: BP 113/83
[~2021-12-10] MED LIST: BENZ-8 PO; GABA-586 PO; INSU100C SQ; LEVO75TA5 PO; LISI20TA18 PO; MUPI1OIN6 TP; TOPI25TA7 PO; TRIA15CR2 TP
[2021-12-10 12:55] LABS: ALBUMIN 3.9 g/dL (3.4-5.0); CALCIUM 8.8 mg/dL (8.5-10.1); CREATININE 0.7 mg/dL (0.6-1.0); DIRECT BILIRUBIN 0.2 mg/dL (0.0-0.2); GFR 90.5; POTASSIUM 3.8 mmol/L (3.5-5.1); TOTAL BILIRUBIN 0.6 mg/dL (0.2-1.0); TOTAL PROTEIN 7.8 g/dL (6.4-8.2)
[2021-12-11 03:09] LABS: HEMOGLOBIN A1C 8.5 % (4.8-5.6)
[2021-12-11 05:15] LABS: MICROALB RD UR 48.2 ug/mL (Not Estab.)
== END ==
LOC: LAB 11:43
PROVIDERS: ATTEND Family Medicine
DX: E11.9 Type 2 diabetes mellitus without complications (principal); E03.9 Hypothyroidism, unspecified; E78.5 Hyperlipidemia, unspecified; F10.99 Alcohol use, unspecified with unspecified alcohol-induced disorder
CPT/HCPCS: 80053; 80076; 82043; 82570; 83036; 84436; 84443

== ENCOUNTER 2021-12-16 10:57 | Emergency (ER) | payer OTHER ==
[~2021-12-16] VITALS: Ht 152.4 cm; Wt 52.5 kg
[2021-12-16] MEDS ORDERED: IV NORMAL SALINE 1,000ML 1,000 ML IV ONE ×3 (11:15→18:15)
[2021-12-16] MEDS ORDERED: ONDANSETRON PF 4 MG/2 ML VIAL. IVP ONE (11:15)
--- NOTE | 2021-12-16 11:22 | PHYS DOC ---
Past History Past Medical History: Diabetes Additional Past Medical Histor: AVASCULAR NECROSIS (DILCIA PRICE APRN) Past Surgical History: Other Additional Past Surgical Histo: R THORACOTOMY (DILCIA PRICE APRN) Alcohol Use: None (DILCIA PRICE APRN) General Adult EDM: Chief Complaint: WITHDRAWAL HPI: HPI: Patient is a 46-year-old female that presents today with nausea and vomiting. Patient states that she drank 2 pints of vodka on on Wednesday after being sober for quite some time, she states that today she has had nausea vomiting and that she feels like she is in DKA. Patient states she is a type I diabetic, and she has been unable to keep any by mouth fluids down. Patient states her primary care physician is Dr. Muro in [facility]. (DILCIA PRICE APRN) Review of Systems: Review of Systems: Constitutional: Denies fever or chills Eyes: Denies change in visual acuity HENT: Denies nasal congestion or sore throat Respiratory: Denies cough or shortness of breath Cardiovascular: Denies chest pain or edema GI: Nausea and vomiting denies abdominal pain, bloody stools or diarrhea : Denies dysuria Musculoskeletal: Denies back pain or joint pain Integument: Denies rash Neurologic: Denies headache, focal weakness or sensory changes Endocrine: Elevated blood sugar denies polyuria or polydipsia Lymphatic: Denies swollen glands Psychiatric: Denies depression or anxiety (DILCIA PRICE APRN) Current Medications: Current Meds: Current Medications Medications (Trade) Dose Ordered Sig/Javier Start Time Stop Time Status Last Admin Dose Admin Ondansetron HCl (Zofran) 4 mg 1X ONCE 12/16/21 11:15 12/16/21 11:16 Sodium Chloride 1,000 ml @ 1,000 mls/hr 1X ONCE 12/16/21 11:15 12/16/21 12:14 (DILCIA PRICE APRN) Allergies: Allergies: Allergies Coded Allergies Type Severity Reaction Last Updated Verified No Known Drug Allergies 05/14/21 No (DILCIA PRICE APRN) Physical Exam: PE: Constitutional: Well developed, well nourished, mild distress, non-toxic appearance. [] HENT: Breath smells ketotic mucous membranes are dry Eyes: PERRLA, EOMI, conjunctiva normal, no discharge. [] Neck: Normal range of motion, no tenderness, supple, no stridor. [] Cardiovascular:Heart rate regular rhythm, no murmur [] Lungs & Thorax: Bilateral breath sounds clear to auscultation [] Abdomen: Bowel sounds normal, soft, upper abdomen tenderness, no masses, no pulsatile masses. [] Skin: pale, Warm, dry, no erythema, no rash. [] Back: No tenderness, no CVA tenderness. [] Extremities: No tenderness, no cyanosis, no clubbing, ROM intact, no edema. [] Neurologic: Alert and oriented X 3, normal motor function, normal sensory function, no focal deficits noted. [] Psychologic: Affect normal, judgement normal, mood normal. [] (DILCIA PRICE APRN) Current Patient Data: Labs: Laboratory Tests Test 12/16/21 11:30 12/16/21 12:53 12/16/21 13:02 12/16/21 15:05 White Blood Count 10.0 x10^3/uL Red Blood Count 4.45 x10^6/uL Hemoglobin 14.4 g/dL Hematocrit 44.5 % Mean Corpuscular Volume 100 fL Mean Corpuscular Hemoglobin 32 pg Mean Corpuscular Hemoglobin Concent 32 g/dL Red Cell Distribution Width 14.4 % Platelet Count 300 x10^3/uL Neutrophils (%) (Auto) 83 % Lymphocytes (%) (Auto) 11 % Monocytes (%) (Auto) 6 % Eosinophils (%) (Auto) 0 % Basophils (%) (Auto) 1 % Neutrophils # (Auto) 8.3 x10^3uL Lymphocytes # (Auto) 1.1 x10^3/uL Monocytes # (Auto) 0.6 x10^3/uL Eosinophils # (Auto) 0.0 x10^3/uL Basophils # (Auto) 0.1 x10^3/uL Sodium Level 130 mmol/L Potassium Level 4.7 mmol/L Chloride Level 93 mmol/L Carbon Dioxide Level 6 mmol/L Anion Gap 31 Blood Urea Nitrogen 10 mg/dL Creatinine 1.1 mg/dL Estimated GFR (Cockcroft-Gault) 53.7 BUN/Creatinine Ratio 9 Glucose Level 351 mg/dL Lactic Acid Level 1.2 mmol/L Calcium Level 8.5 mg/dL Total Bilirubin 1.2 mg/dL Aspartate Amino Transf (AST/SGOT) 25 U/L Alanine Aminotransferase (ALT/SGPT) 24 U/L Alkaline Phosphatase 131 U/L Total Protein 8.6 g/dL Albumin 4.2 g/dL Albumin/Globulin Ratio 1.0 Urine Collection Type Unknown Urine Color Yellow Urine Clarity Clear Urine pH 5.5 Urine Specific [place] >=1.030 Urine Protein 100 mg/dl Urine Glucose (UA) 500 mg/dL Urine Ketones (Stick) >=160 mg/dL Urine Blood Small Urine Nitrite Neg Urine Bilirubin Neg Urine Urobilinogen Dipstick 0.2 mg/dL Urine Leukocyte Esterase Neg Urine RBC 3-5 /HPF Urine WBC Occ /HPF Urine Squamous Epithelial Cells Mod /LPF Urine Bacteria Mod /HPF Urine Mucus Slight /LPF Urine Yeast Present /HPF Bedside Urine HCG, Qualitative hcg negative Glucose (Fingerstick) 278 mg/dL Test 12/16/21 18:16 12/16/21 18:35 12/16/21 18:59 Glucose (Fingerstick) 241 mg/dL 262 mg/dL Sodium Level 132 mmol/L Potassium Level 4.8 mmol/L Chloride Level 99 mmol/L Carbon Dioxide Level 8 mmol/L Anion Gap 25 Blood Urea Nitrogen 9 mg/dL Creatinine 1.0 mg/dL Estimated GFR (Cockcroft-Gault) 60.0 Glucose Level 270 mg/dL Calcium Level 7.9 mg/dL Current Medications Medications (Trade) Dose Ordered Sig/Javier Route PRN Reason Start Time Stop Time Status Last Admin Dose Admin Sodium Chloride 1,000 ml @ 1,000 mls/hr 1X ONCE IV 12/16/21 11:15 12/16/21 12:14 DC 12/16/21 11:32 Ondansetron HCl (Zofran) 4 mg 1X ONCE IVP 12/16/21 11:15 12/16/21 11:16 DC 12/16/21 11:32 Sodium Chloride 1,000 ml @ 1,000 mls/hr 1X ONCE IV 12/16/21 13:15 12/16/21 14:14 DC 12/16/21 13:11 Insulin Human Regular (HumuLIN R VIAL) 10 unit 1X ONCE IV 12/16/21 13:15 12/16/21 13:44 DC Metoclopramide HCl (Reglan Vial) 10 mg 1X ONCE IVP 12/16/21 13:15 12/16/21 13:16 DC 12/16/21 13:11 Ketorolac Tromethamine (Toradol 30mg Vial) 30 mg 1X ONCE IVP 12/16/21 13:15 12/16/21 13:16 DC 12/16/21 13:13 Insulin Human Regular (HumuLIN R VIAL) 5 unit 1X ONCE IV 12/16/21 13:45 12/16/21 13:46 DC 12/16/21 13:54 Sodium Chloride 1,000 ml @ 1,000 mls/hr 1X ONCE IV 12/16/21 18:15 12/16/21 19:14 12/16/21 18:15 Insulin Human Regular (HumuLIN R VIAL) 3 unit 1X ONCE SQ 12/16/21 18:30 12/16/21 18:31 DC Vital Signs: Vital Signs Date Time Temp Pulse Resp B/P (MAP) Pulse Ox O2 Delivery O2 Flow Rate FiO2 12/16/21 10:57 98.3 124 24 169/123 (138) 97 Room Air 12/16/21 10:57 98.3 124 24 169/123 (138) 97 Room Air (DILCIA PRICE MANAGER CONVENTION) EKG: EKG: [] (DILCIA PRICE MANAGER CONVENTION) Radiology/Procedures: Radiology/Procedures: [] (DILCIA PRICE APRN) Heart Score: C/O Chest Pain: N/A Risk Factors: Risk Factors: DM, Current or recent (<one month) smoker, HTN, HLP, family history of CAD, obesity. Risk Scores: Score 0 - 3: 2.5% MACE over next 6 weeks - Discharge Home Score 4 - 6: 20.3% MACE over next 6 weeks - Admit for Clinical Observation Score 7 - 10: 72.7% MACE over next 6 weeks - Early Invasive Strategies (DILCIA PRICE APRN) Course & Med Decision Making: Course & Med Decision Making Pertinent Labs and Imaging studies reviewed. (See chart for details) 1530 we will repeat a BNP to check on the status of the ion gap, patient has just completed her second liter has #3 L INFLUSING. 1 multiple hemolyzed BNP samples have occurred, we are waiting lab to come down and draw this patient, [id number] glucose done, will give 3 units of subcu insulin that is the patient's home dose. Patient is tolerating by mouth fluid, states she feels much better. 1904 I reviewed laboratory results with patient's, she feels she is able to manage this at home at this time. She states she feels really well and she is tolerating p.o. fluids. Patient will be given a prescription for some Zofran if she should needed at home I encouraged her to stick with clear liquids for the next 12 to 24 hours to give her gut rest and then resume as tolerated, I will also encouraged her to call her primary care physician to inform them of her status and that she was here in the emergency department they were able to see her in follow-up. Patient verbalized understanding of this and is agreeable to the plan of care of continue your home medications as previously prescribed. (DILCIA PRICE APRN) Dragon Disclaimer: Dragchuy Disclaimer: This electronic medical record was generated, in whole or in part, using a voice recognition dictation system. (DILCIA PRICE APRN) Departure Departure: Impression: Primary Impression: Hyperglycemia Disposition: HOME / SELF CARE / HOMELESS Condition: STABLE Referrals: IRIS MURO (PCP) Patient Instructions: Cardiac Diet, [id number], Hyperglycemia Additional Instructions: Clear liquids for the next 12 to 24 hours then advance as tolerated Check your blood sugar before every meal and at night or more frequently if you feel it is needed Take your insulin as directed Follow-up with your primary care physician tomorrow by phone to inform her that you are here in the emergency department Zofran take 1 tablet every 6 hours as needed for nausea or vomiting, use with caution may cause constipation Return to the emergency department if unable to tolerate by mouth fluids even with taking Zofran, or your blood glucose level gets to be greater than 500. Scripts Ondansetron (ONDANSETRON ODT) 4 Mg Tab.rapdis 1 TAB PO PRN Q6-8HRS for nausea, #16 TAB Prov: DILCIA PRICE APRN 12/16/21 Dragon Disclaimer This chart was dictated in whole or in part using Voice Recognition software in a busy, high-work load, and often noisy Emergency Department environment. It may contain unintended and wholly unrecognized errors or omissions. (KAT LEVIN MD) Dragon Disclaimer This chart was dictated in whole or in part using Voice Recognition software in a busy, high-work load, and often noisy Emergency Department environment. It may contain unintended and wholly unrecognized errors or omissions. (DILCIA PRICE APRN) Dragon Disclaimer This chart was dictated in whole or in part using Voice Recognition software in a busy, high-work load, and often noisy Emergency Department environment. It may contain unintended and wholly unrecognized errors or omissions. (KAT LEVIN MD) Dragon Disclaimer This chart was dictated in whole or in part using Voice Recognition software in a busy, high-work load, and often noisy Emergency Department environment. It may contain unintended and wholly unrecognized errors or omissions. (KTA LEVIN MD) Attending Signature Attending Signature I have participated in the care of this patient and I have reviewed and agree with all pertinent clinical information above including history, exam, and recommendations. (KAT LEVIN MD) Attending Signature I have participated in the care of this patient and I have reviewed and agree with all pertinent clinical information above including history, exam, and recommendations. (DILCIA PRICE APRN) Attending Signature Attending Signature I have participated in the care of this patient and I have reviewed and agree with all pertinent clinical information above including history, exam, and recommendations. (KAT LEVIN MD) Attending Signature Attending Signature I have participated in the care of this patient and I have reviewed and agree with all pertinent clinical information above including history, exam, and recommendations. (KAT LEVIN MD) Attending Signature Attending Signature I have participated in the care of this patient and I have reviewed and agree with all pertinent clinical information above including history, exam, and recommendations. (KAT LEVIN MD) DILCIA PRICE APRN Dec 16, 2021 11:22 KAT LEVIN MD Dec 17, 2021 02:04
[2021-12-16 12:07] LABS: BASO # 0.1 x10^3/uL (0.0-0.2); BASO % 1 % (0-3); EOS % 0 % (0-3); HEMATOCRIT 44.5 % (36.0-47.0); HEMOGLOBIN 14.4 g/dL (12.0-15.5); LYMPH # 1.1 x10^3/uL (1.0-4.8); LYMPH % 11 % (24-48); MEAN CORPUSCULAR HEMOGLOBIN 32 pg (25-35); MEAN CORPUSCULAR HGB CONC 32 g/dL (31-37); MEAN CORPUSCULAR VOLUME 100 fL (79-100); MONO # 0.6 x10^3/uL (0.0-1.1); MONO % 6 % (0-9); NEUT # 8.3 x10^3uL (1.8-7.7); NEUT % 83 % (31-73); PLATELET COUNT 300 x10^3/uL (140-400); RED BLOOD COUNT 4.45 x10^6/uL (3.50-5.40); RED CELL DISTRIBUTION WIDTH 14.4 % (11.5-14.5)
[2021-12-16 12:23] LABS: ALBUMIN 4.2 g/dL (3.4-5.0); CALCIUM 8.5 mg/dL (8.5-10.1); CREATININE 1.1 mg/dL (0.6-1.0); GFR 53.7; POTASSIUM 4.7 mmol/L (3.5-5.1); TOTAL BILIRUBIN 1.2 mg/dL (0.2-1.0); TOTAL PROTEIN 8.6 g/dL (6.4-8.2)
[2021-12-16] MEDS ORDERED: INSULIN REGULAR 100 UNIT/ML 3ML VIAL. IV ONE ×2 (13:15→13:45)
[2021-12-16] MEDS ORDERED: KETOROLAC 30 MG/ML VIAL. IVP ONE (13:15)
[2021-12-16] MEDS ORDERED: METOCLOPRAMIDE HCL 10 MG/2 ML VIAL. IVP ONE (13:15)
[2021-12-16 13:49] LABS: BACTERIA,URINE MOD /HPF (0-FEW); CLARITY,URINE CLEAR; COLOR,URINE YELLOW; GLUCOSE,URINE 500 mg/dL (NEG); NITRITE,URINE NEG (NEG); SQUAMOUS EPITHELIAL CELL,UR MOD /LPF; UROBILINOGEN,URINE 0.2 mg/dL (0.2 mg/dL); WBC,URINE OCC /HPF (0-4); YEAST,URINE PRESENT /HPF
[2021-12-16 16:00] VITALS: BP 161/104
[2021-12-16] MEDS ORDERED: INSULIN REGULAR 100 UNIT/ML 3ML VIAL. SQ ONE (18:30)
[2021-12-16 18:58] LABS: CALCIUM 7.9 mg/dL (8.5-10.1); POTASSIUM 4.8 mmol/L (3.5-5.1)
[2021-12-16] MEDS ORDERED: ONDA4TAB12 PO (19:12)
[2021-12-16] MEDS ORDERED: ONDANSETRON 4MG ODT 4TABLET STARTPACK. PO ONE (19:15)
== END 2021-12-16 19:31 | disposition home or self-care (01) ==
LOC: ER 10:57
DX: E10.65 Type 1 diabetes mellitus with hyperglycemia (principal)
CPT/HCPCS: 36415; 80048; 80053; 81001; 81025; 82947; 83605; 85025; 87086; 96361; 96372; 96374; 96375; 99285; J1815; J1885; J2405; J2765; J7030; Q0162